=== PATIENT | male | born 1975 | race Hispanic/Latino ===

== ENCOUNTER 2019-01-02 14:50 | Emergency (ER) | payer MEDICARE, MEDICAID ==
--- NOTE | 2019-01-02 15:23 | RAD ---
Portable frontal chest radiograph: 01/02/2019 COMPARISON: 06/28/2016 HISTORY: Shortness of breath FINDINGS: Lungs are clear. Mild prominence of the cardiac silhouette noted, suggesting magnification and/or enlargement. No focal consolidation or alveolar edema. IMPRESSION: No acute findings.
[2019-01-02 16:32] LABS: #Basophils 0.1 thou/uL (0.0-0.2); #Eosinphils 0.4 thou/uL (0.0-0.7); #Lymphocytes 2.8 thou/uL (1.20-3.40); %Basophils 0.7 % (0.0-1.0); %Eosinophils 3.5 % (0.0-10.0); %Lymphocytes 24.8 % (21.0-51.0); %Monocytes 8.9 % (0.0-10.0); Hemoglobin 15.3 g/dL (14.0-18.0); Mean Corpuscular Hemoglobin 28.5 pg (27.0-31.0); Mean Corpuscular Volume 86.6 fL (78.0-98.0); Platelet Count 229 thou/uL (130-400); RBC Distribution Width 14.3 % (11.5-14.5); Red Blood Cell (RBC) Count 5.35 mill/uL (4.70-6.10); White Blood Cell (WBC) Count 11.3 thou/uL (4.8-10.8)
[2019-01-02 16:52] LABS: ALT (SGPT) 111 U/L (8-55); AST (SGOT) 93 U/L (5-34); Alkaline Phosphatase 119 U/L (40-110); Anion Gap 14 mmol/L (10-20); BUN (Urea Nitrogen) 11 mg/dL (8.9-20.6); Bilirubin, Total 0.5 mg/dL (0.2-1.2); Calc. Creatinine Clearance 0 mL/min (70-130); Calcium 9.5 mg/dL (7.8-10.44); Carbon Dioxide 25 mmol/L (22-29); Chloride 102 mmol/L (98-107); Estimated GFR-MDRD Greater than 90; Globulin 3.9 g/dL (2.4-3.5); Glucose 107 mg/dL (70-105); Potassium 4.7 mmol/L (3.5-5.1); Protein, Total 7.9 g/dL (6.0-8.3); Sodium 136 mmol/L (136-145)
[2019-01-02] MEDS ORDERED: Dexamethasone 4 mg/ml Vial ONE (17:21)
[2019-01-02] MEDS ORDERED: cefTRIAXone\\ROCEPHIN 1 GM VIAL ONE (17:21)
== END 2019-01-02 18:25 | disposition home or self-care (01) ==
LOC: ERS 14:50
DX: R06.2 Wheezing (principal); R05 Cough; R06.00 Dyspnea, unspecified; I25.2 Old myocardial infarction; F41.9 Anxiety disorder, unspecified; Z87.891 Personal history of nicotine dependence; Z79.899 Other long term (current) drug therapy
CPT/HCPCS: 71045; 80053; 84484; 85025; 93005; 94640; 94760; 96365; 96375; 99213; G0463; J0696; J1100; J7620